=== PATIENT | female | born 1980 | race American Indian/Alaskan Native ===

== ENCOUNTER 2016-05-06 12:17 | Emergency (ER) | payer OTHER ==
[2016-05-06 12:27] VITALS: BP 120/67; PULSE 84; TEMP 97.8; BMI 32.5
--- NOTE | 2016-05-06 12:57 | PDOC ---
History of Present Illness - General Chief Complaint: Vaginal Bleeding Stated Complaint: 16 WKS , BLEEDING Time Seen by Provider: 05/06/16 12:39 - History of Present Illness Initial Comments: 05/06/16 12:56 CHIEF COMPLAINT: vaginal bleeding, 16 wks HISTORY OF PRESENT ILLNESS: 35 yo 16 wk F with no significant PMH presents to ED with vaginal bleeding and cramping sensation x 2 days. Patient reports "some spotting" and yellow discharge. She denies fever or chills. She reports that she had nausea earlier in her but not any in the last month. No recent travel or sick contacts. PAST MEDICAL HISTORY: Denies past medical history FAMILY HISTORY: Denies SOCIAL HISTORY: Denies tobacco, alcohol, illicit drug use. SURGICAL HISTORY: Denies ALLERGIES: No known drug allergies REVIEW OF SYSTEMS General/Constitutional: Denies fever or chills. Denies weakness, weight change. HEENT: Denies change in vision. Denies ear pain or discharge. Denies sore throat. Cardiovascular: Denies chest pain or shortness of breath. Respiratory: Denies cough, wheezing, or hemoptysis. Gastrointestinal: Lower abdomen cramping. Denies nausea, vomiting, diarrhea or constipation. Denies rectal bleeding. Genitourinary: Spotting x 3 days. Denies dysuria, frequency, or change in urination. Musculoskeletal: Denies joint or muscle swelling or pain. Denies neck or back pain. Skin and breasts: Denies rash or easy bruising. Neurologic: Denies headache, vertigo, loss of consciousness, or loss of sensation. PHYSICAL EXAM General Appearance: Well-appearing, appropriately dressed. No apparent distress , no intoxication. HEENT: EOMI, PERRLA, normal ENT inspection, normal voice, TMs normal, pharynx normal. No conjunctival pallor. No photophobia, scleral icterus. Respiratory/Chest: Lungs CTAB. Cardiovascular: RRR. S1, S2. Gastrointestinal/Abdominal: Normal bowel sounds. Abdomen soft, non-distended. No tenderness or rebound tenderness. No organomegaly, pulsatile mass, guarding , hernia, hepatomegaly, splenomegaly. Pelvic: External genitalia normal without lesions. Vaginal vault with yellow discharge and scant blood. Cervix closed. No cervical motion tenderness. Uterus is nontender and normal in size. Adnexa are nontender and without masses. Musculoskeletal/Extremities: Normal inspection. FROM of all extremities, normal capillary refill. Pelvis Stable. No CVA tenderness. No tenderness to extremities, pedal edema, swelling, erythema or deformity. Integumentary: Appropriate color, dry, warm. No cyanosis, erythema, jaundice or rash Neurologic: plate stacker hand II-XII intact. Fully oriented, alert. Appropriate mood/affect. Motor strength 5/5. No appreciable EOM palsy, facial droop or sensory deficit. Past History - Past Medical History Allergies/Adverse Reactions: Allergies Allergy/AdvReac Type Severity Reaction Status Date / Time No Known Allergies Allergy Verified 05/06/16 12:22 Home Medications: Ambulatory Orders Vitamins 1 tab PO DAILY 11/23/14 Acetaminophen [Tylenol .Regular Strength -] 650 mg PO Q4H PRN #0 tablet Ferrous Sulfate [Feosol] 325 mg PO BID #60 ud 01/26/15 Ibuprofen [Motrin -] 600 mg PO Q4H PRN #30 tablet 01/26/15 Vitamins (Sjr) - 1 tab PO DAILY tablet 01/26/15 Asthma: No Cancer: No Cardiac Disorders: No Diabetes: No HTN: No Seizures: No Thyroid Disease: No - Psycho/Social/Smoking Cessation Hx Anxiety: No Suicidal Ideation: No Smoking History: Never smoked Have you smoked in the past 12 months: No Hx Alcohol Use: No Drug/Substance Use Hx: No Substance Use Type: None Hx Substance Use Treatment: No *Physical Exam - Vital Signs Last Vital Signs Temp Pulse Resp BP Pulse Ox 97.8 F 84 20 120/67 100 05/06/16 12:20 05/06/16 12:20 05/06/16 12:20 05/06/16 12:20 05/06/16 12:20 ED Treatment Course - LABORATORY CBC & Chemistry Diagram: 05/06/16 12:52 Medical Decision Making - Medical Decision Making 05/06/16 15:53 35 yo 16 wk F presents to ED with vaginal bleeding x 3 days. -CBC -beta hCG -TV U/S to eval FHT Vaginal discharge greenish/yellow, will test for Ct/GC 05/06/16 15:54 Labs: beta hCG 8444 TV U/S - Confirmed IUP 18wks gestational age. Will discharge home with close follow up with OBGYN. Advised patient to f/u with OB within 2 days and of signs and symptoms for return to ED. Patient verbalized understanding and agrees to plan. 05/08/16 08:59 *DC/Admit/Observation/Transfer Diagnosis at time of Disposition: Threatened - Discharge Dispostion Disposition: HOME Admit: No - Referrals Referrals: Sharon Fernandez MD [Primary Care Provider] - - Patient Instructions Printed Discharge Instructions: DI for Threatened Additional Instructions: Please follow up with Dr. Fernandez by the end of the week. If you experience severe vaginal bleeding (more than one soaked pad an hour), urinary discomfort, sever abdominal or pelvic pain, fever, chills, or any new or worsening symptoms , please return to the ER.
[2016-05-06 14:01] LABS: BASOPHIL 0.6 % (0-2.0); EOSINOPHIL 1.1 % (0-4.5); MCH 29.2 pg (25.7-33.7); MCHC 33.9 g/dl (32.0-36.0); MEAN CELL VOLUME 86.1 fl (80-96); MEAN PLT VOLUME 8.1 fl (7.5-11.1); NEUTROPHILS 73.4 % (42.8-82.8); PLATELET COUNT 214 K/MM3 (134-434); RDW 14.4 % (11.6-15.6); WHITE BLOOD COUNT 8.4 K/mm3 (4.0-10.0)
[2016-05-06 16:36] LABS: URINE APPEARANCE CLEAR; URINE BILIRUBIN NEGATIVE (NEGATIVE); URINE BLOOD NEGATIVE (NEGATIVE); URINE COLOR STRAW; URINE GLUCOSE (UA) NEGATIVE (NEGATIVE); URINE KETONE NEGATIVE (NEGATIVE); URINE LEUK ESTERASE NEGATIVE (NEGATIVE); URINE NITRITE NEGATIVE (NEGATIVE); URINE PROTEIN NEGATIVE (NEGATIVE); URINE UROBILINOGEN NEGATIVE E.U./dl (0.2-1.0)
== END 2016-05-06 16:35 | disposition home or self-care (01) ==
LOC: JER 12:17
DX: O26.892 Other specified pregnancy related conditions, second trimester (principal); O20.0 Threatened abortion; Z3A.16 16 weeks gestation of pregnancy
CPT/HCPCS: 36415; 76815-TC; 81003; 84702; 85025; 87086; 87491; 87591; 99281-25

== ENCOUNTER 2016-10-02 13:14 | Inpatient (IN) | payer OTHER ==
[2016-10-02 14:58] VITALS: BMI 40.5
[2016-10-02] MEDS ORDERED: CITRIC ACID/SODIUM CITRATE 30 ML UNIT-DOSE CUP PO ONE (15:21)
[2016-10-02] MEDS ORDERED: ELECTROLYTE-148 SOLN 500 ML IV ONE (15:21)
--- NOTE | 2016-10-02 15:26 | HP ---
Past Medical History - Admission Chief Complaint: Previous History of Present Illness: 35 yo @ 39 weeks gestation with previous , is pre op for elective . History Source: Patient Limitations to Obtaining History: No Limitations - Past Medical History Gastrointestinal: Yes: Constipation ...: 3 ...Para: 1 ...Term: 1 ...: 0 ...Spon : 1 ...Induced : 0 ...Multiple Gestation: 0 ...LMP: 01/05/16 ... Weeks Gestation by Dates: 38.5 ...EDC by Dates: 10/11/16 ...EDC by Sono: 10/09/16 - Past Surgical History Past Surgical History: Yes: Hx Myomectomy: No Hx Transabdominal Cerclage: No - Smoking History Smoking history: Never smoked Have you smoked in the past 12 months: No - Alcohol/Substance Use Hx Alcohol Use: No History of Substance Use: reports: None - Social History History of Recent Travel: No Home Medications - Allergies Allergies/Adverse Reactions: Allergies Allergy/AdvReac Type Severity Reaction Status Date / Time No Known Allergies Allergy Verified 05/06/16 12:22 - Home Medications Home Medications: Ambulatory Orders Synthroid 175 mcg PO DAILY 10/02/16 Family Disease History - Family Disease History Family History: Unremarkable Review of Systems - Review of Systems Constitutional: reports: No Symptoms Eyes: reports: No Symptoms HENT: reports: No Symptoms Neck: reports: No Symptoms Cardiovascular: reports: No Symptoms Respiratory: reports: No Symptoms Gastrointestinal: reports: No Symptoms Genitourinary: reports: No Symptoms Breasts: reports: No Symptoms Reported Musculoskeletal: reports: No Symptoms Neurological: reports: No Symptoms Pain Intensity: 0 Physical Exam - Maternity Vital Signs: Vital Signs Temperature 97.8 F 10/02/16 14:44 Pulse Rate 80 10/02/16 14:44 Respiratory Rate 20 10/02/16 14:44 Blood Pressure 120/67 10/02/16 14:44 O2 Sat by Pulse Oximetry (%) Constitutional: Yes: Well Nourished Eyes: Yes: Conjunctiva Clear HENT: Yes: Atraumatic Neck: Yes: Supple, Trachea Midline Cardiovascular: Yes: Regular Rate and Rhythm Lungs: Clear to auscultation - Abdominal Exam/OB Number of Fetuses: Single Presentation: Vertex - Physical Exam ...Motor Strength: WNL Psychiatric: Yes: Alert, Oriented Problem List - Problems (1) Previous section complicating Code(s): O34.219 - MATERNAL CARE FOR UNSP TYPE SCAR FROM PREVIOUS DEL (2) Status post repeat low transverse section Code(s): Z98.891 - HISTORY OF UTERINE SCAR FROM PREVIOUS SURGERY Assessment/Plan IUP @ 39 weeks Pre op for repeat Consent signed Anesthesia to see patient
--- NOTE | 2016-10-02 15:27 | OP ---
Operative Note - Note: Operative Date: 10/02/16 Pre-Operative Diagnosis: Previous Operation: Repeat Low Transverse Findings: Large baby boy in ROT position. Post-Operative Diagnosis: Same as Pre-op Surgeon: Sharon Fernandez Dipper Machine Operator: Sushma Mccray Anesthesia: Spinal Specimens Removed: Placenta
[2016-10-02] MEDS ORDERED: METHYLERGONOVINE MALEATE 0.2 MG/1 ML AMP IM PRN (16:27)
[2016-10-02] MEDS ORDERED: D5W-LR W/ 20 UNITS OXYTOCIN 1,000 ML IV SCH (16:30)
[2016-10-02] MEDS ORDERED: ONDANSETRON 4 MG/2 ML VIAL IVPB PRN (16:46)
[2016-10-02] MEDS: FERROUS SO4 325 MG TABLET (FP) PO SCH (22:11)
--- NOTE | 2016-10-03 07:15 | PN ---
Progress Note (SOAP) - Subjective Chief Complaint: Pt examined at bed side - Current Medications Current Medications: Active Medications Bisacodyl (Dulcolax Suppository -) 10 mg RC PRN PRN PRN Reason: CONSTIPATION Diphenhydramine HCl (Benadryl Injection -) 25 mg IVPUSH Q4H PRN PRN Reason: Pruritis Diphtheria/Tetanus/Acell Pertussis (Boostrix -) 0.5 ml IM .ONCE ONE Stop: 10/03/16 18:01 Ferrous Sulfate (Feosol -) 325 mg PO BID [facility] Last Admin: 10/02/16 22:11 Dose: Not Given Dextrose/Lactated Ringer's (Pitocin 20 Units In D5-Lr -) 1,000 mls @ 125 mls/ hr IV ASDIR [facility] Last Admin: 10/02/16 16:40 Dose: 125 mls/hr Ibuprofen (Motrin -) 600 mg PO Q4H PRN PRN Reason: PAIN Methylergonovine Maleate (Methergine Injection -) 0.2 mg IM Q4H PRN PRN Reason: Excessive Bleeding (L&D) Oxycodone HCl (Roxicodone -) 5 mg PO Q4H PRN PRN Reason: PAIN LEVEL 1-5 Multivit/Folic Acid/Iron ( Vitamins (Sjr) -) 1 tab PO DAILY [facility] Simethicone (Mylicon -) 80 mg PO Q4H PRN PRN Reason: GAS - Objective Vital Signs: Vital Signs Temperature 99.9 F H 10/03/16 06:00 Pulse Rate 105 H 10/03/16 06:00 Respiratory Rate 20 10/03/16 06:00 Blood Pressure 113/61 10/03/16 06:00 O2 Sat by Pulse Oximetry (%) 100 10/02/16 17:30 Constitutional: Yes: Well Nourished, No Distress Respiratory: Yes: WNL Gastrointestinal: Yes: WNL ....Post : Yes: Uterus firm, Uterus non-tender Musculoskeletal: Yes: WNL Extremities: Yes: WNL Peripheral Pulses WNL: No Wound/Incision: Yes: Clean/Dry, Well Approximated, Dressing Dry and Intact Neurological: Yes: WNL, Alert, Oriented Assessment/Plan SP CS COntinue present management
[2016-10-03 07:59] LABS: BASOPHIL 0.3 % (0-2.0); EOSINOPHIL 0.5 % (0-4.5); MCH 29.1 pg (25.7-33.7); MCHC 33.4 g/dl (32.0-36.0); MEAN CELL VOLUME 87.2 fl (80-96); NEUTROPHILS 82.3 % (42.8-82.8); PLATELET COUNT 153 K/MM3 (134-434); RDW 14.6 % (11.6-15.6)
[2016-10-03] MEDS: SIMETHICONE 80 MG TAB.CHEW (FP) PO PRN ×3 (08:24→21:45)
[2016-10-03] MEDS: oxyCODONE HCL 5 MG TABLET PO PRN ×3 (08:24→21:45)
[2016-10-03] MEDS: IBUPROFEN 600 MG TABLET (FP) PO PRN ×2 (08:25→13:52)
[2016-10-03] MEDS: FERROUS SO4 325 MG TABLET (FP) PO SCH ×2 (10:52→21:31)
[2016-10-03] MEDS: PRENATAL VITAMINS W/ FOLIC ACID TABLET (FP) PO SCH (10:53)
--- NOTE | 2016-10-03 13:51 | PN ---
Progress Note (short form) - Note Progress Note: Anesthesia post op note,POD#1 S/P under spinal with duramorph. Pat seen and examined. VSS. No apparent post anesthesia complications.ambulating. Motor and sensory intact. Signed off
[2016-10-03] MEDS ORDERED: BISACODYL 10 MG SUPP.RECT RC PRN (16:27)
[2016-10-03] MEDS ORDERED: DIPHTH,PERTUSS(ACELL),TET 0.5 ML DISP.SYRIN IM ONE (18:00)
[2016-10-03] MEDS: ACETAMINOPHEN 325 MG TABLET (FP) PO PRN (21:46)
[2016-10-04] MEDS: ACETAMINOPHEN 325 MG TABLET (FP) PO PRN ×3 (06:22→21:11)
[2016-10-04] MEDS: SIMETHICONE 80 MG TAB.CHEW (FP) PO PRN ×3 (06:22→21:12)
[2016-10-04] MEDS: IBUPROFEN 600 MG TABLET (FP) PO PRN ×3 (06:23→21:10)
[2016-10-04] MEDS: PRENATAL VITAMINS W/ FOLIC ACID TABLET (FP) PO SCH (09:06)
[2016-10-04] MEDS: FERROUS SO4 325 MG TABLET (FP) PO SCH ×3 (09:06→21:15)
--- NOTE | 2016-10-04 09:33 | PN ---
Progress Note (SOAP) - Subjective Chief Complaint: Pt examined at bed side - Current Medications Current Medications: Active Medications Acetaminophen (Tylenol -) 650 mg PO Q4H PRN PRN Reason: FEVER OR PAIN Last Admin: 10/04/16 06:22 Dose: 650 mg Bisacodyl (Dulcolax Suppository -) 10 mg RC PRN PRN PRN Reason: CONSTIPATION Last Admin: 10/04/16 09:06 Dose: 10 mg Diphenhydramine HCl (Benadryl Injection -) 25 mg IVPUSH Q4H PRN PRN Reason: Pruritis Ferrous Sulfate (Feosol -) 325 mg PO BID [facility] Last Admin: 10/04/16 09:06 Dose: Not Given Dextrose/Lactated Ringer's (Pitocin 20 Units In D5-Lr -) 1,000 mls @ 125 mls/ hr IV ASDIR [facility] Last Admin: 10/02/16 16:40 Dose: 125 mls/hr Ibuprofen (Motrin -) 600 mg PO Q4H PRN PRN Reason: PAIN Last Admin: 10/04/16 06:23 Dose: 600 mg Methylergonovine Maleate (Methergine Injection -) 0.2 mg IM Q4H PRN PRN Reason: Excessive Bleeding (L&D) Oxycodone HCl (Roxicodone -) 5 mg PO Q4H PRN PRN Reason: PAIN LEVEL 1-5 Last Admin: 10/03/16 21:45 Dose: 5 mg Multivit/Folic Acid/Iron ( Vitamins (Sjr) -) 1 tab PO DAILY [facility] Last Admin: 10/04/16 09:06 Dose: 1 tab Simethicone (Mylicon -) 80 mg PO Q4H PRN PRN Reason: GAS Last Admin: 10/04/16 06:22 Dose: 80 mg - Objective Vital Signs: Vital Signs Temperature 98.6 F 10/04/16 08:07 Pulse Rate 97 H 10/04/16 08:07 Respiratory Rate 20 10/04/16 08:07 Blood Pressure 106/67 10/04/16 08:07 O2 Sat by Pulse Oximetry (%) 100 10/02/16 17:30 Constitutional: Yes: Well Nourished, No Distress Labs Lab Results: CBC, BMP 10/03/16 07:20 Assessment/Plan SP CS COntinue present management DC home
[2016-10-04] MEDS: oxyCODONE HCL 5 MG TABLET PO PRN (16:07)
[2016-10-05 08:16] LABS: BASOPHIL 0.5 % (0-2.0); EOSINOPHIL 4.2 % (0-4.5); MCH 29.6 pg (25.7-33.7); MCHC 33.8 g/dl (32.0-36.0); MEAN CELL VOLUME 87.6 fl (80-96); MEAN PLT VOLUME 8.1 fl (7.5-11.1); NEUTROPHILS 69.2 % (42.8-82.8); PLATELET COUNT 184 K/MM3 (134-434); RDW 14.9 % (11.6-15.6); WHITE BLOOD COUNT 8.4 K/mm3 (4.0-10.0)
[2016-10-05 09:19] VITALS: BP 115/74; PULSE 70; TEMP 97.8
[2016-10-05] MEDS: PRENATAL VITAMINS W/ FOLIC ACID TABLET (FP) PO SCH (09:40)
[2016-10-05] MEDS: ACETAMINOPHEN 325 MG TABLET (FP) PO PRN (09:40)
[2016-10-05] MEDS: FERROUS SO4 325 MG TABLET (FP) PO SCH (09:40)
[2016-10-05] MEDS: IBUPROFEN 600 MG TABLET (FP) PO PRN (09:41)
--- NOTE | 2016-10-09 13:43 | PATH ---
Surgical Pathology Report Patient Name: RAJANI WIN [facility]. Rec. #: [id number] /Age/Gender: 1980 (Age: 35) / F Account: [id number] Location: [facility] OBS/CHARGING PLUG PLACER Taken: 10/02/2016 Received: 10/05/2016 Reported: 10/09/2016 Physicians: Sharon Fernandez M.D. Specimen(s) Received PLACENTA Clinical History Hyperthyroid diagnosis 2014, c/section 01/23/15 Scheduled repeat c/section Final Diagnosis PLACENTA, DELIVERY: FOCALLY DISRUPTED THIRD TRIMESTER PLACENTA WITH MILD PREVILLOUS, PERIVILLOUS, AND PRECHORIONIC FIBRIN DEPOSITION, THREE VESSEL UMBILICAL CORD, AND UNREMARKABLE PLACENTAL MEMBRANES. Electronically Signed Tyrone Jaime M.D. Gross Description The specimen is received fresh, labeled "placenta" and is a 573 gram, 18.0 x 16.0 x 2.7 cm placenta with attached membranes and umbilical cord. The attached membranes are pastrana, translucent with focal opacities and insert marginally. The umbilical cord measures 39 cm in length and averages 1.2 cm in diameter. The cord inserts eccentrically, 4 cm to the nearest margin. No true knots or strictures are identified. Cut surface of the umbilical cord reveals 3 vessels. The surface is granados-blue with fibrin deposition and appropriate caliber vessels. The maternal surface is red-brown with focal defects. Sectioning reveals brown, spongy parenchyma. No discrete lesions are identified. Toy Assembly Supervisor sections are submitted in three cassettes as follows: 1- membrane rolls and umbilical cord; 2-3- full thickness sections of placenta. /10/08/2016 [facility]10/08/2016
== END 2016-10-05 14:00 | disposition home or self-care (01) | DRG 540 ==
LOC: JLDR 13:14 → J3W 18:00
PROVIDERS: ADMIT Obstetrics & Gynecology; ATTEND Obstetrics & Gynecology
PROC: 10D00Z1 Extraction of Products of Conception, Low, Open Approach (ICD-10-PCS; principal; 2016-10-02)
PROC: 3E0234Z Introduction of Serum, Toxoid and Vaccine into Muscle, Percutaneous Approach (ICD-10-PCS; 2016-10-03)
DX: O34.211 Maternal care for low transverse scar from previous cesarean delivery (principal); O26.893 Other specified pregnancy related conditions, third trimester; Z67.21 Type B blood, Rh negative; Z3A.39 39 weeks gestation of pregnancy; Z37.0 Single live birth
CPT/HCPCS: 36415; 71010-TC; 85025; 85461; 86999; 88307-TC; 90715

== ENCOUNTER 2018-12-30 06:15 | Inpatient (IN) | payer OTHER ==
[2018-12-30 07:44] VITALS: BMI 37.8
[2018-12-30] MEDS ORDERED: morphine SULFATE/PF 0.5 MG/ML (2cc Syringe - QUVA) ONE ×2 (07:45→07:46)
[2018-12-30] MEDS ORDERED: ELECTROLYTE-148 SOLN 500 ML IV ONE (08:10)
[2018-12-30] MEDS ORDERED: CITRIC ACID/SODIUM CITRATE 30 ML UNIT-DOSE CUP PO ONE (08:10)
[2018-12-30] MEDS ORDERED: ELECTROLYTE-148 SOLN 1,000 ML IV SCH (08:15)
--- NOTE | 2018-12-30 08:24 | HP ---
Past Medical History - Primary Care Physician PCP:: Raquel Kemp - Admission Chief Complaint: 38 yrs , previous c/s x2 Twins Monochorionic-diamniotic Twins , 37.4 weeks , both babies transverse lie , admitted ofr repeat c/s as per M recommndations History of Present Illness: 38 yrs , late transferred from Dr cook's office on 12/27/18 . wt gain 29 lbs panel B -neg, , documentation about rhogam not found rpr nr, hbsag neg, rubella immune, Hiv nr , Quantiferon neg , 1 hr gct 157, , 3 hr 84, 183, 150, 103, sickle cell neg , 36 weeks cultures taken on 12/27/18 , GBS pending hiv nr MFM sono noted AMA , Abn afp screen , ,panorma lo risk echo normal last BPP 12/29 , twins transveres both .bpp8/8 nst weekly done wnl History Source: Patient, Medical Record - Past Medical History NUCLEAR RADIATION ENGINEER: No: CVA, Migraine, Seizure Cardiovascular: No: HTN, Murmur Gastrointestinal: Yes: Constipation Hepatobiliary: No: Cirrhosis, Cholelithiasis, Cholecystitis, Choledocholithiasis , Hepatitis A, Hepatitis B, Hepatitis C, Other ...: 3 ...Para: 2 ...Term: 2 (c/s 01/2015. 09/2016 ) ...: 0 ...Spon : 0 ...Induced : 0 ...Multiple Gestation: 0 ...EDC by Sono: 01/16/19 (37.4 weeks TwIns) Heme/Onc: Yes: Anemia Psych: No: Addictions, Anxiety, Bipolar, Depression, Panic, Psychosis, Schizophrenia, Other Endocrine: Yes: Hypothyroidism (rx po leothyroxine 125 mcg daily). No: Sedrick' s Disease, Muna's Disease, Diabetes Insipidus, Diabetes Mellitus, Hyperparathyroidism, Hyperthyroidism, Osteopenia, SIADH, Other - Past Surgical History Past Surgical History: Yes: (01/2015 & 09/2016 at [facility]) Hx Myomectomy: No Hx Transabdominal Cerclage: No - Smoking History Smoking history: Never smoked Have you smoked in the past 12 months: No - Alcohol/Substance Use Hx Alcohol Use: No History of Substance Use: reports: None - Social History History of Recent Travel: No Home Medications - Allergies Allergies/Adverse Reactions: Allergies Allergy/AdvReac Type Severity Reaction Status Date / Time No Known Allergies Allergy Verified 12/30/18 09:15 - Home Medications Home Medications: Ambulatory Orders No122/Iron/Folic Acid [ Multi Tablet] 1 each PO DAILY 12/22/18 Levothyroxine [Synthroid -] 1 tab PO DAILY 12/26/18 Physical Exam - Maternity Vital Signs: Vital Signs Temperature 98.7 F 12/30/18 06:15 Pulse Rate 78 12/30/18 06:15 Respiratory Rate 20 12/30/18 06:15 Blood Pressure 125/80 12/30/18 06:15 O2 Sat by Pulse Oximetry (%) Selected Entries 12/30/18 06:15 Weight 227 lb Constitutional: Yes: Well Nourished, No Distress, Obese HENT: Yes: WNL, Normocephalic Neck: Yes: WNL Cardiovascular: Yes: WNL, Regular Rate and Rhythm Lungs: Clear to auscultation Breast(s): Yes: WNL - Abdominal Exam/OB Fundal Height: 42 Number of Fetuses: Multiple Presentation: Twins Contractions: Yes Regularity: Irregular Intensity: Mild Monitor Mode: External Heart Rate (range): 135/ 145 Heart Rate Location: Midline Category: I Accelerations: Uniform Decelerations: None - Vaginal Exam/OB Vaginal Bleediing: No Dilatation (cm): close, Effacement (%): unefface Presentation: Transverse/Shoulder (A baby : with head down , spine to rt trransverse . B baby transverse Head to left , spine up) Station: -3 - Physical Exam Musculoskeletal: Yes: WNL Extremities: Yes: WNL. No: Calf Tenderness Edema: LLE: 2+, RLE: 2+ Integumentary: Yes: Incision (pfannensteil) Deep Tendon Reflex Grade: Normal +2 Psychiatric: Yes: WNL, Alert Problem List - Problems (1) with 37 weeks completed gestation Code(s): Z3A.37 - 37 WEEKS GESTATION OF (2) Previous section complicating Code(s): O34.219 - MATERNAL CARE FOR UNSP TYPE SCAR FROM PREVIOUS DEL (3) Monozygotic twins in third trimester Code(s): O30.003 - TWIN PREG, UNSP NUM PLCNTA & AMNIO SACS, THIRD TRIMESTER (4) Transv/obliq lie-unspec Code(s): O32.2XX0 - MATERNAL CARE FOR TRANSVERSE AND OBLIQUE LIE, UNSP Qualifiers: Fetus number: fetus 2 of multiple gestation Qualified Code(s): O32.2XX2 - Maternal care for transverse and oblique lie, fetus 2 (5) AMA (advanced maternal age) multigravida 35+ Code(s): O09.529 - SUPERVISION OF ELDERLY MULTIGRAVIDA, UNSPECIFIED TRIMESTER (6) Hypothyroidism Code(s): E03.9 - HYPOTHYROIDISM, UNSPECIFIED Qualifiers: Hypothyroidism type: unspecified Qualified Code(s): E03.9 - Hypothyroidism , unspecified Assessment/Plan 38 yrs ( AMA) , previous c/sx2 , for repeat c/s Twins 27.4 weeks Plan repeat c/s
[2018-12-30] MEDS ORDERED: OXYTOCIN 20 UNITS in 0.9% NS 40 UNIT/2,000 ML INFUS.BAG IV ONE (08:26)
[2018-12-30] MEDS ORDERED: ceFAZolin SODIUM 1 GM VIAL ONE (08:36)
[2018-12-30] MEDS ORDERED: MIDAZOLAM HCL 2 MG/2 ML SINGLE DOSE VIAL ONE (08:42)
[2018-12-30] MEDS ORDERED: KETAMINE HCL 500 MG/10 ML VIAL ONE (08:43)
[2018-12-30] MEDS ORDERED: METHYLERGONOVINE MALEATE 0.2 MG/1 ML AMP IM PRN (09:38)
[2018-12-30] MEDS ORDERED: SENNOSIDES/DOCUSATE COMBO (SENNA PLUS) TABLET (UD) PO PRN (09:38)
[2018-12-30] MEDS: OXYTOCIN 20 UNITS in 0.9% NS 20 UNIT/1,000 ML INFUS.BAG IV SCH ×2 (09:45→18:03)
--- NOTE | 2018-12-30 11:41 | OP ---
DATE OF OPERATION: 12/30/2018 PREOPERATIVE DIAGNOSIS: A 37.4 weeks twin gestation, previous section x2, transverse, transverse. POSTOPERATIVE DIAGNOSIS: A 37.4 weeks twin gestation, previous section x2, transverse, transverse. SURGEON: Raquel Kemp MD FOOD COOKING MACHINE OPERATOR: RONA Birch ANESTHESIOLOGIST: Yeison Contreras MD ANESTHESIA: Spinal. FINDINGS: Patient not in labor. Baby A 8:43 a.m. from right dorsal anterior delivered 5 pounds, 9 ounces, 19-inch baby boy. Baby B at 8:45 a.m. left dorsal posterior delivered cephalic, 5 pounds 14 ounces, 19 inch. Apgars 9 and 9 for both the babies. PROCEDURE: Patient is taken to the operating room table. Abdomen was shaved, prepped. Cid catheter was placed. The patient was given spinal anesthesia, placed in supine position on the table, and abdomen was painted and draped in usual manner. Pfannenstiel incision was made in previous scar in skin and subcutaneous tissue. Anterior rectus sheath were incised transversely. Bleeding points were clamped and cauterized. Rectus muscle was from the rectus sheath. Parietal peritoneum was opened vertically. Lower flap bladder peritoneum was incised transversely, and then, lower uterine segment was incised transversely. The baby's position was transverse at the right side. The head was brought down before taking the incision. Then, the lower uterine segment was incised transversely, and the amniotic fluid A Baby sac was was opened. A Baby was delivered from the right side as a cephalic presentation, and baby's cord was clamped, cut. Then, the B Baby was felt. The head was to the left transversely, and then, the internal rotation was done. Baby's head was brought down, and B sac was opened and baby was delivered in the cephalic presentation. B baby's immediate suction was done. Cord was clamped. Baby was handed over to the head porter baggage, and then, the cord blood B Baby was collected. B cord was marked by the 2 clamps, and then, A Baby cord was collected, marked by the 1 clamp. There was 1 placenta, 2 amniotic sacs, Monozygotic diamniotic twins. Placenta was removed completely with the membranes. The uterine cavity was cleaned, and then , the uterus was soft. Anesthesiologist gave IV Pitocin and IM Methergine. Uterine incision was closed in 2 layers. First layer was a continuous locking with a Biosyn 0 suture. Second layer was a continuous intermittent locking with a Biosyn 0 suture. Hemostasis was verified. Then, the bladder peritoneum was closed with a Biosyn 0 suture. Both tubes and ovaries were normal, and then, irrigation was done. Sponge, instrument, and needle count was correct, and the closure of the abdomen was done. Parietal peritoneum was closed with a Vicryl 0 suture. Muscles were approximated together with Vicryl 0 interrupted sutures. Anterior rectus sheath was closed with Vicryl 0 continuous sutures. Hemostasis was checked. Skin was mobilized from underneath the scar and subcutaneous tissue hemostasis was checked and irrigation was done. Subcutaneous tissue was approximated with 2-0 Vicryl suture. Interrupted sutures were taken. Skin was approximated with chelsea. Pressure dressing was given. Blood clots were removed from the vagina. Estimated blood loss was 800 mL. Intraoperative urine output was 200 mL. IV fluid infusion was 1200 mL. She received 2 g of IV Ancef prior to the incision. Marcia [id number] MTDDillon
[2018-12-30 11:56] LABS: BLOOD UREA NITROGEN 12.5 mg/dL (7-18); CALCIUM 8.1 mg/dL (8.5-10.1); CREATININE 0.7 mg/dL (0.55-1.3); POTASSIUM 4.5 mmol/L (3.5-5.1)
--- NOTE | 2018-12-30 15:24 | PN ---
Delivery - Delivery Type of Anesthesia: Spinal Episiotomy/Laceration: None EBL (cc): 800 Delivery, Single - [place] Feeding Plan Initial Plan: Elected not to breastfeed exclusively throughout hospitalization Delivery, Multiple Births - Stages of Labor Delivery Baby "A" Date: 12/30/18 Time: 08:43 Placenta/Membranes "A" Date: 12/30/18 Time: 08:46 Delivery Baby "B" Date: 12/30/18 Time: 08:45 Placenta/Membranes "B" Date: 12/30/18 Time: 08:46 - Condition of Multiple Births 1 (A) Student Services Advisor/Directional Driller Present: No Student Services Advisor: Volodymyr Ott Infant Gender: Male Weight: 5 lb 9 oz Position: Right (transverse lie , right dorso anterior , delievered as cephalic) Total Hours ROM (HRS/MINS): 4min Placenta: Yes: Manual Removal, Uterine Exploration Milton 2 (B) Student Services Advisor/Directional Driller Present: No Student Services Advisor: Volodymyr Ott Infant Gender: Male Weight: 5 lb 14 oz Position: Left (Transverse lie, Left dorsoposterior ,head rotated down to the centre of incision delivered as cephalic) Total Hours ROM (HRS/MINS): 2min Placenta: Yes: Manual Removal, Uterine Exploration (One Placenta Two amniotic sacs) - [place] 1 (A) 1 Minute Score: 9 [place] 1 (A) 5 Minutes Score: 9 [place] 2 (B) 1 Minute Score: 9 [place] 2 (B) 5 Minutes Score: 9 Remarks - Remarks Remarks: 38 yrs , previous c/sx2 37.4 weeks , monozygotic twins , recommended by m to be delivered , Intraoperative course uneventful uterine atony noted, corrected by IV Pitocin & IM Methergine 2gm IV Ancef prior to incision was given v/s stable
--- NOTE | 2018-12-30 15:39 | OP ---
Operative Note - Note: Operative Date: 12/30/18 Pre-Operative Diagnosis: 37.4 weeks, previous c/s x2, Twins monozygotic, trans/ transv Operation: Repeat LFTC/Section Findings: A baby B baby TOB 8.43AM 8.45aM Sex Male Male Position Transverse , RT Dorso Ant Transverse , LT Dorso Post delivered as cephalic delivered as cephalic 12/12 9 Weight 5'9' 5'14" Height 19 " 19" Placenta One, Two amniotic sacs uterine atony after delivery of Placenta Rx Iv Pitocin & Im Methergine Ballaster Dr Guillaume Surgeon: Raquel Kemp Poultry Feed Supervisor: Nabor Guzman Anesthesiologist/TWIST MAKER: Wilmar Latham Anesthesia: Spinal Specimens Removed: cord blood baby A. cord blood baby B. placenta Estimated Blood Loss (mls): 800 Drains, Volume Out (mls): 200 (mane color urine , burk output) Fluid Volume Replaced (mls): 1,200 (iv ancef 2 gm ivpb )
[2018-12-30] MEDS: CEFAZOLIN 1 GM/D5W 1 GM/50 ML BAG IVPB SCH ×2 (17:10→23:35)
[2018-12-30] MEDS: IBUPROFEN 800 MG/8 ML IJ IVPB PRN (20:52)
[2018-12-31] MEDS: IBUPROFEN 800 MG/8 ML IJ IVPB PRN (06:05)
[2018-12-31] MEDS: LEVOTHYROXINE NA 125 MCG TABLET (FP) PO SCH (06:56)
[2018-12-31] MEDS: CEFAZOLIN 1 GM/D5W 1 GM/50 ML BAG IVPB SCH (08:06)
--- NOTE | 2018-12-31 08:16 | PN ---
Post Progress Note - Subjective Subjective: c/o incision pain mainly on rt side not voided yet after burk taken out passing flatus Post Day: 1 Type of Delivery: Repeat C/S Vital Signs: Vital Signs Temperature 98.2 F 12/31/18 06:00 Pulse Rate 89 12/31/18 06:00 Respiratory Rate 18 12/31/18 06:00 Blood Pressure 102/60 12/31/18 06:00 O2 Sat by Pulse Oximetry (%) 99 12/30/18 10:25 Breast Exam: Yes: Soft, Other (BF ). No: Engorged Uterus: Yes: Fundus Firm, Fundus below umbilicus, Non-tender Incision: Yes: Dressing dry and intact. No: Oozing Abdomen/GI: Yes: Abdomen soft (BS active ), Abdominal Distention (obese abdomen ), Passing flatus, Tolerating PO (clear fluids ). No: Tender Lochia: Yes: Rubra Lochia, amount: Moderate Extremities: Yes: Calves non-tender, Edema Perineum: Yes: Intact Activity: Other (oob in chair ) - Labs Labs: i/o 2000/400 ml RS cta Problem List - Problems (1) with 37 weeks completed gestation Code(s): Z3A.37 - 37 WEEKS GESTATION OF (2) Previous section complicating Code(s): O34.219 - MATERNAL CARE FOR UNSP TYPE SCAR FROM PREVIOUS DEL (3) Monozygotic twins in third trimester Code(s): O30.003 - TWIN PREG, UNSP NUM PLCNTA & AMNIO SACS, THIRD TRIMESTER (4) Transv/obliq lie-unspec Code(s): O32.2XX0 - MATERNAL CARE FOR TRANSVERSE AND OBLIQUE LIE, UNSP Qualifiers: Fetus number: fetus 2 of multiple gestation Qualified Code(s): O32.2XX2 - Maternal care for transverse and oblique lie, fetus 2 (5) AMA (advanced maternal age) multigravida 35+ Code(s): O09.529 - SUPERVISION OF ELDERLY MULTIGRAVIDA, UNSPECIFIED TRIMESTER (6) Hypothyroidism Code(s): E03.9 - HYPOTHYROIDISM, UNSPECIFIED Qualifiers: Hypothyroidism type: unspecified Qualified Code(s): E03.9 - Hypothyroidism , unspecified (7) delivery due to maternal disorder, delivered, curr hospitaliz Code(s): O99.89 - OTH DISEASES AND CONDITIONS COMPL PREG/CHLDBRTH (8) Status post section routine follow-up Code(s): Z39.2 - ENCOUNTER FOR ROUTINE FOLLOW-UP; Z98.891 - HISTORY OF UTERINE SCAR FROM PREVIOUS SURGERY Assessment/Plan s/p repeat c/s stable po cbc pending ct po care
[2018-12-31 08:35] LABS: BASO % 0.4 % (0-2.0); EOS % 1.9 % (0-4.5); HEMATOCRIT 34.5 % (32.4-45.2); HEMOGLOBIN 11.7 GM/dL (10.7-15.3); LYMPH % 12.1 % (8-40); MCH 31.1 pg (25.7-33.7); MEAN CELL VOLUME 91.6 fl (80-96); MEAN PLT VOLUME 8.5 fl (7.5-11.1); NEUT % 79.6 % (42.8-82.8); PLATELET COUNT 138 K/MM3 (134-434); RBC 3.76 M/mm3 (3.60-5.2); WHITE BLOOD COUNT 10.9 K/mm3 (4.0-10.0)
[2018-12-31] MEDS ORDERED: BISACODYL 10 MG SUPP.RECT RC PRN (09:38)
[2018-12-31] MEDS: PRENATAL VITAMINS W/ FOLIC ACID TABLET (FP) PO SCH (09:48)
[2018-12-31] MEDS: ENOXAPARIN NA (PORCINE) 40 MG/0.4 ML DISP.SYRIN SQ SCH (09:48)
[2018-12-31] MEDS ORDERED: DIPHTH,PERTUSS(ACELL),TET 0.5 ML DISP.SYRIN IM ONE (10:00)
[2018-12-31] MEDS: oxyCODONE HCL 5 MG TABLET PO PRN ×2 (15:07→21:15)
[2018-12-31] MEDS: SIMETHICONE 80 MG TAB.CHEW (FP) PO PRN ×2 (15:07→21:15)
[2018-12-31] MEDS: IBUPROFEN 600 MG TABLET (FP) PO PRN ×2 (15:09→21:16)
[2018-12-31] MEDS: FERROUS SO4 325 MG TABLET (FP) PO SCH (21:15)
[2019-01-01] MEDS: SIMETHICONE 80 MG TAB.CHEW (FP) PO PRN ×3 (06:03→21:59)
[2019-01-01] MEDS: IBUPROFEN 600 MG TABLET (FP) PO PRN ×3 (06:03→21:59)
[2019-01-01] MEDS: LEVOTHYROXINE NA 125 MCG TABLET (FP) PO SCH (06:03)
[2019-01-01] MEDS: ACETAMINOPHEN 325 MG TABLET (FP) PO PRN (06:03)
[2019-01-01] MEDS: FERROUS SO4 325 MG TABLET (FP) PO SCH ×2 (09:26→21:59)
[2019-01-01] MEDS: PRENATAL VITAMINS W/ FOLIC ACID TABLET (FP) PO SCH (09:26)
[2019-01-01] MEDS: ENOXAPARIN NA (PORCINE) 40 MG/0.4 ML DISP.SYRIN SQ SCH (09:26)
--- NOTE | 2019-01-01 10:29 | PN ---
Post Progress Note - Subjective Subjective: c/o pain on rt side of incision bm done voiding without difficulty Post Day: 2 Type of Delivery: Repeat C/S Vital Signs: Vital Signs Temperature 97.6 F 12/31/18 20:42 Pulse Rate 98 H 12/31/18 20:42 Respiratory Rate 20 12/31/18 20:42 Blood Pressure 99/57 L 12/31/18 20:42 O2 Sat by Pulse Oximetry (%) 99 12/30/18 10:25 Breast Exam: Yes: Soft, Other (soft , breast & bottle feeding ). No: Engorged Uterus: Yes: Fundus Firm, Fundus below umbilicus, Non-tender Incision: Yes: Ligia intact, Other (no induration ). No: Redness, Oozing Abdomen/GI: Yes: Abdomen soft, Abdominal Distention (obese abdomen ), Passing flatus, Tolerating PO (diet). No: Tender Lochia: Yes: Rubra Lochia, amount: Moderate Extremities: Yes: Calves non-tender Activity: Ambulating - Labs Labs: CBC WBC 10.9 K/mm3 (4.0-10.0) H 12/31/18 08:10 RBC 3.76 M/mm3 (3.60-5.2) 12/31/18 08:10 Hgb 11.7 GM/dL (10.7-15.3) 12/31/18 08:10 Hct 34.5 % (32.4-45.2) 12/31/18 08:10 MCV 91.6 fl (80-96) 12/31/18 08:10 MCH 31.1 pg (25.7-33.7) 12/31/18 08:10 MCHC 34.0 g/dl (32.0-36.0) 12/31/18 08:10 RDW 15.0 % (11.6-15.6) 12/31/18 08:10 Plt Count 138 K/MM3 (134-434) 12/31/18 08:10 MPV 8.5 fl (7.5-11.1) 12/31/18 08:10 Absolute Neuts (auto) 8.7 K/mm3 (1.5-8.0) H 12/31/18 08:10 Neutrophils % 79.6 % (42.8-82.8) D 12/31/18 08:10 Lymphocytes % 12.1 % (8-40) D 12/31/18 08:10 Monocytes % 6.0 % (3.8-10.2) 12/31/18 08:10 Eosinophils % 1.9 % (0-4.5) 12/31/18 08:10 Basophils % 0.4 % (0-2.0) 12/31/18 08:10 Nucleated RBC % 0 % (0-0) 12/31/18 08:10 Problem List - Problems (1) with 37 weeks completed gestation Code(s): Z3A.37 - 37 WEEKS GESTATION OF (2) Previous section complicating Code(s): O34.219 - MATERNAL CARE FOR UNSP TYPE SCAR FROM PREVIOUS DEL (3) Monozygotic twins in third trimester Code(s): O30.003 - TWIN PREG, UNSP NUM PLCNTA & AMNIO SACS, THIRD TRIMESTER (4) Transv/obliq lie-unspec Code(s): O32.2XX0 - MATERNAL CARE FOR TRANSVERSE AND OBLIQUE LIE, UNSP Qualifiers: Fetus number: fetus 2 of multiple gestation Qualified Code(s): O32.2XX2 - Maternal care for transverse and oblique lie, fetus 2 (5) AMA (advanced maternal age) multigravida 35+ Code(s): O09.529 - SUPERVISION OF ELDERLY MULTIGRAVIDA, UNSPECIFIED TRIMESTER (6) Hypothyroidism Code(s): E03.9 - HYPOTHYROIDISM, UNSPECIFIED Qualifiers: Hypothyroidism type: unspecified Qualified Code(s): E03.9 - Hypothyroidism , unspecified (7) delivery due to maternal disorder, delivered, curr hospitaliz Code(s): O99.89 - OTH DISEASES AND CONDITIONS COMPL PREG/CHLDBRTH (8) Status post section routine follow-up Code(s): Z39.2 - ENCOUNTER FOR ROUTINE FOLLOW-UP; Z98.891 - HISTORY OF UTERINE SCAR FROM PREVIOUS SURGERY Assessment/Plan stable plan ct po care
[2019-01-01] MEDS: oxyCODONE HCL 5 MG TABLET PO PRN ×2 (15:03→21:59)
[2019-01-02] MEDS: IBUPROFEN 600 MG TABLET (FP) PO PRN ×3 (06:14→22:38)
[2019-01-02] MEDS: SIMETHICONE 80 MG TAB.CHEW (FP) PO PRN ×3 (06:14→22:38)
[2019-01-02] MEDS: LEVOTHYROXINE NA 125 MCG TABLET (FP) PO SCH (06:14)
[2019-01-02] MEDS: ACETAMINOPHEN 325 MG TABLET (FP) PO PRN (06:14)
[2019-01-02 07:48] LABS: BASO % 0.5 % (0-2.0); EOS % 4.3 % (0-4.5); HEMATOCRIT 30.3 % (32.4-45.2); HEMOGLOBIN 10.4 GM/dL (10.7-15.3); LYMPH % 21.3 % (8-40); MCH 31.4 pg (25.7-33.7); MCHC 34.4 g/dl (32.0-36.0); MEAN CELL VOLUME 91.1 fl (80-96); MEAN PLT VOLUME 7.8 fl (7.5-11.1); MONO % 7.4 % (3.8-10.2); NEUT % 66.5 % (42.8-82.8); PLATELET COUNT 167 K/MM3 (134-434); RBC 3.32 M/mm3 (3.60-5.2); RDW 14.9 % (11.6-15.6); WHITE BLOOD COUNT 7.6 K/mm3 (4.0-10.0)
--- NOTE | 2019-01-02 08:47 | PN ---
Post Progress Note - Subjective Subjective: pain on incision rt angle markedly less today. c/o gaseous discomfort bm not done Post Day: 3 Type of Delivery: Repeat C/S Vital Signs: Vital Signs Temperature 98.3 F 01/01/19 20:45 Pulse Rate 94 H 01/01/19 20:45 Respiratory Rate 20 01/01/19 20:45 Blood Pressure 115/75 01/01/19 20:45 O2 Sat by Pulse Oximetry (%) 99 12/30/18 10:25 Breast Exam: Yes: Soft, Other (mainly bottle feeding. encourage to pump & BF ). No: Engorged Uterus: Yes: Fundus Firm, Fundus below umbilicus, Non-tender Abdomen/GI: Yes: Abdomen soft (bs active ), Abdominal Distention (obese abdomen ), Passing flatus, Tolerating PO (diet ). No: Tender Lochia: Yes: Rubra Lochia, amount: Moderate Extremities: Yes: Calves non-tender Perineum: Yes: Intact Activity: Ambulating - Labs Labs: CBC WBC 7.6 K/mm3 (4.0-10.0) 01/02/19 07:05 RBC 3.32 M/mm3 (3.60-5.2) L 01/02/19 07:05 Hgb 10.4 GM/dL (10.7-15.3) L 01/02/19 07:05 Hct 30.3 % (32.4-45.2) L 01/02/19 07:05 MCV 91.1 fl (80-96) 01/02/19 07:05 MCH 31.4 pg (25.7-33.7) 01/02/19 07:05 MCHC 34.4 g/dl (32.0-36.0) 01/02/19 07:05 RDW 14.9 % (11.6-15.6) 01/02/19 07:05 Plt Count 167 K/MM3 (134-434) D 01/02/19 07:05 MPV 7.8 fl (7.5-11.1) 01/02/19 07:05 Absolute Neuts (auto) 5.1 K/mm3 (1.5-8.0) 01/02/19 07:05 Neutrophils % 66.5 % (42.8-82.8) 01/02/19 07:05 Lymphocytes % 21.3 % (8-40) D 01/02/19 07:05 Monocytes % 7.4 % (3.8-10.2) 01/02/19 07:05 Eosinophils % 4.3 % (0-4.5) D 01/02/19 07:05 Basophils % 0.5 % (0-2.0) 01/02/19 07:05 Nucleated RBC % 0 % (0-0) 01/02/19 07:05 Problem List - Problems (1) with 37 weeks completed gestation Code(s): Z3A.37 - 37 WEEKS GESTATION OF (2) Previous section complicating Code(s): O34.219 - MATERNAL CARE FOR UNSP TYPE SCAR FROM PREVIOUS DEL (3) Monozygotic twins in third trimester Code(s): O30.003 - TWIN PREG, UNSP NUM PLCNTA & AMNIO SACS, THIRD TRIMESTER (4) Transv/obliq lie-unspec Code(s): O32.2XX0 - MATERNAL CARE FOR TRANSVERSE AND OBLIQUE LIE, UNSP Qualifiers: Fetus number: fetus 2 of multiple gestation Qualified Code(s): O32.2XX2 - Maternal care for transverse and oblique lie, fetus 2 (5) AMA (advanced maternal age) multigravida 35+ Code(s): O09.529 - SUPERVISION OF ELDERLY MULTIGRAVIDA, UNSPECIFIED TRIMESTER (6) Hypothyroidism Code(s): E03.9 - HYPOTHYROIDISM, UNSPECIFIED Qualifiers: Hypothyroidism type: unspecified Qualified Code(s): E03.9 - Hypothyroidism , unspecified (7) delivery due to maternal disorder, delivered, curr hospitaliz Code(s): O99.89 - OTH DISEASES AND CONDITIONS COMPL PREG/CHLDBRTH (8) Status post section routine follow-up Code(s): Z39.2 - ENCOUNTER FOR ROUTINE FOLLOW-UP; Z98.891 - HISTORY OF UTERINE SCAR FROM PREVIOUS SURGERY Assessment/Plan stable plan ct po care pt prefers fleets enema to IN suppository discharge tomorrow [place] to be removed before discharge
[2019-01-02] MEDS: PRENATAL VITAMINS W/ FOLIC ACID TABLET (FP) PO SCH (10:07)
[2019-01-02] MEDS: FERROUS SO4 325 MG TABLET (FP) PO SCH ×2 (10:07→22:36)
[2019-01-02] MEDS: OXYTOCIN 20 UNITS in 0.9% NS 20 UNIT/1,000 ML INFUS.BAG IV SCH (10:08)
[2019-01-02] MEDS: ENOXAPARIN NA (PORCINE) 40 MG/0.4 ML DISP.SYRIN SQ SCH (10:08)
[2019-01-02] MEDS: oxyCODONE HCL 5 MG TABLET PO PRN ×2 (14:14→22:38)
[2019-01-03] MEDS: LEVOTHYROXINE NA 125 MCG TABLET (FP) PO SCH (06:45)
[2019-01-03] MEDS: SIMETHICONE 80 MG TAB.CHEW (FP) PO PRN (06:47)
[2019-01-03] MEDS: oxyCODONE HCL 5 MG TABLET PO PRN (06:47)
[2019-01-03] MEDS: IBUPROFEN 600 MG TABLET (FP) PO PRN (06:48)
--- NOTE | 2019-01-03 08:17 | DS ---
Physical Examination Vital Signs: Vital Signs Temperature 98.0 F 01/02/19 21:49 Pulse Rate 83 01/02/19 21:49 Respiratory Rate 18 01/02/19 21:49 Blood Pressure 116/75 01/02/19 21:49 O2 Sat by Pulse Oximetry (%) 99 12/30/18 10:25 Findings/Remarks: Patient ambulating, tolerating PO, lochia decreased Constitutional: Yes: Calm HENT: Yes: Atraumatic Neck: Yes: Supple Respiratory: Yes: Regular Gastrointestinal: Yes: Normal Bowel Sounds ...Rectal Exam: Yes: Deferred Renal/: Yes: Other (deferred) Musculoskeletal: Yes: WNL Extremities: Yes: WNL Edema: Yes Edema: LLE: 1+, RLE: 1+ Integumentary: Yes: WNL Wound/Incision: Yes: Well Approximated (sutures removed by delivering attending) Neurological: Yes: Alert, Oriented ...Motor Strength: WNL Psychiatric: Yes: Alert, Oriented Labs: CBC, BMP 01/02/19 07:05 12/30/18 11:18 Discharge Summary Problems reviewed: Yes Reason For Visit: (ADMIT) Current Active Problems AMA (advanced maternal age) multigravida 35+ (Acute) AMA (advanced maternal age) multigravida 35+ (Acute) delivery due to maternal disorder, delivered, curr hospitaliz (Acute) Hypothyroidism (Acute) Monozygotic twins in third trimester (Acute) with 37 weeks completed gestation (Acute) Status post section routine follow-up (Acute) Transv/obliq lie-unspec (Acute) Procedures: Principal: CD Hospital Course: uncomplicated, discharge arranged by delivered attending Plan of Treatment: Follow up as instructed by delivering attending Condition: Stable - Instructions Diet, Activity, Other Instructions: Post Instructions DIET: Continue good diet high in protein, calcium, and iron rich foods. Drink at least eight (8) glasses of water daily in addition to other fluids. ___ Regular diet MEDICATIONS: Continue vitamins and iron as previously directed. Motrin and Tylenol may be taken for minor discomfort. ACTIVITY: Mild to moderate exercise may be started in two (2) weeks. Take frequent rest periods. Resume normal activity after six (6) week check up. WOUND CARE OF OPERATIVE SITE: Continue use of perineal bottle until vaginal discharge stops. Keep area clean. Shower daily. Keep abdominal wound dry. Report any drainage or redness to physician. Tub baths, tampons and douches are not permitted for [address] Breast feeding & or Bottle feeding BREAST CARE: (For those that are not breast feeding): If engorgement occurs: Wear tight fitting bra. Take Tylenol or Motrin for pain. Apply cold packs (ice in bags to each breast ) FAMILY PLANNING: There are many control alternatives to pursue and they should be discussed at your first office visit. You may resume sexual activity after your six (6) week check up. (Remember, breast feeding is not a contraceptive) NEXT PHYSICIAN APPOINTMENT: Be certain to call for a one (1) week appointment, unless otherwise directed. for wound check Call Clinic or got to Emergency Dept if you have any of the following: Heavy vaginal bleeding Painful urination Leg pain Unusual odor noted to vaginal bleeding High fever Red streaking noted on breast Referrals: Raquel Kemp MD [Staff Physician] - Disposition: HOME - Home Medications Comprehensive Discharge Medication List: Ambulatory Orders No122/Iron/Folic Acid [ Multi Tablet] 1 each PO DAILY 12/22/18 Levothyroxine [Synthroid -] 1 tab PO DAILY 12/26/18 Acetaminophen [Tylenol .Regular Strength -] 500 mg PO Q4H PRN #30 tablet Ferrous Sulfate [Feosol] 325 mg PO DAILY #30 tab 01/01/19 Ibuprofen [Motrin -] 600 mg PO Q4H PRN #30 tablet 01/01/19 Levothyroxine [Synthroid -] 125 mcg PO DAILY@0700 tablet 01/01/19 Vitamins ([facility]) - 1 tab PO DAILY #60 tablet 01/01/19
[2019-01-03] MEDS: FERROUS SO4 325 MG TABLET (FP) PO SCH (09:42)
[2019-01-03] MEDS: ENOXAPARIN NA (PORCINE) 40 MG/0.4 ML DISP.SYRIN SQ SCH (09:42)
[2019-01-03] MEDS: PRENATAL VITAMINS W/ FOLIC ACID TABLET (FP) PO SCH (09:42)
[2019-01-03 10:47] VITALS: BP 126/82; PULSE 76; TEMP 98.2
== END 2019-01-03 13:30 | disposition home or self-care (01) | DRG 540 ==
LOC: JLDR 06:15 → J3W 12:40
PROVIDERS: ADMIT Obstetrics & Gynecology; ATTEND Obstetrics & Gynecology
PROC: 10D00Z1 Extraction of Products of Conception, Low, Open Approach (ICD-10-PCS; principal; 2018-12-30)
PROC: 3E0334Z Introduction of Serum, Toxoid and Vaccine into Peripheral Vein, Percutaneous Approach (ICD-10-PCS; 2018-12-30)
DX: O30.003 Twin pregnancy, unspecified number of placenta and unspecified number of amniotic sacs, third trimester (principal); O34.211 Maternal care for low transverse scar from previous cesarean delivery; N85.8 Other specified noninflammatory disorders of uterus; O32.2XX2 Maternal care for transverse and oblique lie, fetus 2; O99.284 Endocrine, nutritional and metabolic diseases complicating childbirth; E03.9 Hypothyroidism, unspecified; Z3A.37 37 weeks gestation of pregnancy; Z29.13 Encounter for prophylactic Rho(D) immune globulin; O99.214 Obesity complicating childbirth; Z37.2 Twins, both liveborn
CPT/HCPCS: 36415; 80048; 85025; 85461; 86999; 90715; 94010